=== PATIENT | male | born 1990 | race Caucasian/White ===

== ENCOUNTER 2018-08-29 08:28 | Inpatient (IN) | payer MEDICARE, OTHER ==
--- NOTE | 2018-08-29 09:32 | PDOC ---
History of Present Illness - General Chief Complaint: Pain Stated Complaint: ABD PAIN Time Seen by Provider: 08/29/18 09:04 History Source: Patient Exam Limitations: No Limitations - History of Present Illness Initial Comments: 08/29/18 09:18 28 yo M w/ no known PMHx comes in c/o sudden onset of diffuse waxing and waning abdominal pain this am, after he woke up, while trying to have a bowel movement. NO associated symptoms. Pt denies nausea/vomiting/diarrhea, no burning /pain on urination, no back pain, no blood in urine, no penile discharge, no headache, no chest pain, no SOB, no h/o abdominal surgeries, no known sick contacts, no rash, no recent travel. Pt had a similar pain 3 yrs ago, was told that it was a gastroenteritis. He did not take any meds at home for symptoms Past History - Past Medical History Allergies/Adverse Reactions: Allergies Allergy/AdvReac Type Severity Reaction Status Date / Time No Known Allergies Allergy Verified 08/29/18 09:25 Home Medications: Ambulatory Orders NK [No Known Home Medication] 08/29/18 COPD: No - Suicide/Smoking/Psychosocial Hx Smoking History: Current some day smoker Information on smoking cessation initiated: No Review of Systems - Review of Systems Able to Perform ROS?: Yes Constitutional: Yes: Malaise. No: Chills, Fever, Night Sweats HEENTM: No: Eye Pain, Recent change in vision, Throat Pain Respiratory: No: Cough, Shortness of Breath Cardiac (ROS): No: Chest Pain, Palpitations, Chest Tightness ABD/GI: Yes: Abdominal cramping. No: Diarrhea, Nausea, Vomiting : No: Dysuria, Hematuria Musculoskeletal: No: Back Pain Integumentary: No: Rash Neurological: No: Headache, Numbness, Dizziness Psychiatric: No: Change in Appetite Endocrine: No: Unexplained Weight Loss *Physical Exam - Vital Signs Last Vital Signs Temp Pulse Resp BP Pulse Ox 97.9 F 61 18 120/80 98 08/29/18 08:29 08/29/18 08:29 08/29/18 08:29 08/29/18 08:29 08/29/18 08:29 - Physical Exam General Appearance: Yes: Nourished, Apparent Distress (from pain) HEENT: positive: DENIS, Normal ENT Inspection, Normal Voice. negative: Pale Conjunctivae, Scleral Icterus (R), Scleral Icterus (L) Neck: positive: Supple. negative: Decreased range of motion, Tender midline Respiratory/Chest: positive: Lungs Clear, Normal Breath Sounds. negative: Respiratory Distress, Accessory Muscle Use Cardiovascular: positive: Regular Rhythm, Regular Rate Gastrointestinal/Abdominal: positive: Normal Bowel Sounds, Tender (diffuse tenderness, mostly in the epigastric area, RLQ/LLQ. mild tenderness at McBurney' s point, No rebound, (-)Rosving sign, (-)psoas sign. Questionnable L sided CVA tenderness), Soft Musculoskeletal: positive: Normal Inspection. negative: CVA Tenderness, Decreased Range of Motion Extremity: positive: Normal Capillary Refill, Normal Inspection, Normal Range of Motion. negative: Tender, Pedal Edema Integumentary: positive: Normal Color, Dry. negative: Jaundice, Rash Neurologic: positive: Fully Oriented, Alert, Normal Mood/Affect ED Treatment Course - LABORATORY CBC & Chemistry Diagram: 08/29/18 09:49 08/29/18 09:49 Medical Decision Making - Medical Decision Making 08/29/18 09:34 28 yo M w/ abdominal pain, epigastric and diffuse lower with ? L CVA tenderness. Will line and lab, check urine, will give maalox, pepcid and if not better will do a CT R/O appendicitis vs kidney stone 08/29/18 13:55 Pt still in a lot of pain, he received omrphine 2mg for pain. Abdomen with diffuse tenderness, mostly in epigastric/RUQ and RLQ. WIll do a CT R/O appendicitis or other intraabdominal pathology 08/29/18 15:43 Temp 100.6. Tylenol ordered. Pt at CT 08/29/18 16:44 CT abdomen/pelvis shows several dilated loops of small bowel (in segments) and large bowel (distally). No obstructive lesions seen, no ileus, R/O inflammatory Vs infectious bowel disease. Radiology recommends Gi consult and eval of upper/ lower GI with barium studies. GI, Dr. Harriett fung 08/29/18 16:50 08/29/18 16:56 I spoke to GI who recommends abdominal xray R/O obstruction. Will also give cipro flagyl due to fever and white count. Xray ordered. 08/29/18 16:59 08/29/18 17:[address] Ortiz. Will admit patient. Pt still in a lot of pain, will order morphine 2mg. Hospitalist paged 08/29/18 18:22 2nd dose of morphine was not ordered. Pt declined, saying that his pain is better, seen and evaluated by the hospitalist. 08/29/18 18:50 Change of shift, care of patient signed over to [facility] who will monitor patient. 28 yo M w/ abdominal pain, CT with dilated loops of bowel in segments in small intestine. R/O infectious vs inflammatory bowel disease. Pt received cipro/flagyl, admitted. Hospitalist already saw patient. 08/29/18 18:55 *DC/Admit/Observation/Transfer Diagnosis at time of Disposition: Abdominal pain Qualifiers: Abdominal location: unspecified location Qualified Code(s): R10.9 - Unspecified abdominal pain - Referrals - Patient Instructions - Post Discharge Activity
[2018-08-29] MEDS ORDERED: FAMOTIDINE 20 MG/50 ML IVPB 20 MG/50 ML MG IVPB ONE ×2 (10:01→10:16)
[2018-08-29] MEDS ORDERED: SODIUM CHLORIDE 0.9% 1000 ML INFUS.BAG IV ONE ×2 (10:01→10:49)
[2018-08-29] MEDS ORDERED: MAG HYDROX/AL HYDROX/SIMETH 30 ML UNIT-DOSE CUP PO ONE (10:01)
[2018-08-29] MEDS ORDERED: MAG HYDROX/AL HYDROX/SIMETH 30 ML UNIT-DOSE CUP ONE (10:05)
[2018-08-29 10:06] LABS: BASO % 0.5 % (0-2.0); EOS % 0.3 % (0-4.5); HEMOGLOBIN 13.7 GM/dL (11.7-16.9); LYMPH % 8.1 % (8-40); MCH 31.4 pg (25.7-33.7); MCHC 33.3 g/dl (32.0-35.9); MEAN CELL VOLUME 94.2 fl (80-96); MEAN PLT VOLUME 9.4 fl (7.5-11.1); MONO % 4.7 % (3.8-10.2); NEUT % 86.4 % (42.8-82.8); PLATELET COUNT 204 K/MM3 (134-434); RBC 4.36 M/mm3 (4.00-5.60); RDW 13.6 % (11.9-15.9); WHITE BLOOD COUNT 12.9 K/mm3 (4.0-10.0)
[2018-08-29 10:13] LABS: INR 0.86 (0.83-1.09); PROTHROMBIN TIME (PATIENT) 10.1 SEC (9.7-13.0)
[2018-08-29 10:24] LABS: ALBUMIN 3.8 g/dl (3.4-5.0); BILIRUBIN,TOTAL 0.2 mg/dL (0.2-1); CREATININE 0.8 mg/dL (0.55-1.3); POTASSIUM 4.2 mmol/L (3.5-5.1); TOT PROT 7.4 g/dl (6.4-8.2)
[2018-08-29 10:26] LABS: URINE APPEARANCE CLEAR; URINE BILIRUBIN NEGATIVE (NEGATIVE); URINE COLOR YELLOW; URINE GLUCOSE (UA) NEGATIVE (NEGATIVE); URINE KETONE NEGATIVE (NEGATIVE); URINE LEUK ESTERASE NEGATIVE (NEGATIVE); URINE NITRITE NEGATIVE (NEGATIVE); URINE PROTEIN NEGATIVE (NEGATIVE); URINE UROBILINOGEN 0.2 mg/dL (0.2-1.0)
[2018-08-29] MEDS ORDERED: ONDANSETRON 4 MG/2 ML VIAL IVPUSH ONE (10:49)
[2018-08-29] MEDS ORDERED: morphine CARPU-JECT 2 MG/1 ML DISP.SYRIN IVPUSH ONE (10:49)
[2018-08-29] MEDS ORDERED: MORPHINE SULFATE 2 MG/ML VIAL ONE (10:50)
[2018-08-29] MEDS ORDERED: ONDANSETRON 4 MG/2 ML VIAL ONE (10:50)
[2018-08-29] MEDS ORDERED: ACETAMINOPHEN 500 MG TABLET (FP) PO ONE (15:41)
[2018-08-29] MEDS ORDERED: ACETAMINOPHEN 325 MG TABLET (FP) ONE (16:13)
[2018-08-29] MEDS ORDERED: CIPROFLOXACIN 400 MG/D5W 400 MG/200 ML IVPB IVPB ONE (17:00)
--- NOTE | 2018-08-29 18:06 | HP ---
CHIEF COMPLAINT: abdominal pain PCP: None HISTORY OF PRESENT ILLNESS: 28 yom with PMHx of Colitis 3 years ago, when d/abbi home from ED on po antibiotics, no prior MD or GI follow up, comes with sudden onset of generalized crampy abdominal pain starting this AM prompting him to come to the ED. Patient reports waking up with the pain, had a normal BM, but felt was about to pass out so came to the hospital. Had an episode of loose stool in the ED. Had nachos and chicken sandwich, unsure if contributed to the symptoms. Denies any fevers, chills, nausea, vomiting, bloody or dark stools, recent travel or antibiotics, sick contact or anyone else sick with similar symptoms. No family hx of Inflammatory bowel disease or GI malignancy. Drinks 5-6 beers daily, marihuana every 1-2 days, last use yesterday. 12 point ROS done, reports weakness and dizziness, neg except above. ER course was notable for: (1) CT A/P with dilated small and large bowel loops (2) Abdominal US (3) Famotidine/morphine/Ciprofloxacin/flagyl (4) GI consult, requesting Abdominal xray Recent Travel: denies PAST MEDICAL HISTORY: Colitis 3 years ago, when d/abbi home from ED on po antibiotics, no prior MD or GI follow up, PAST SURGICAL HISTORY: Denies Social History: Smoking: denies Alcohol: 5-6 beers daily Drugs: marihuana every 1-2 days Works in construction, lives with girlfriend. Independent in ADLs Family History: Allergies No Known Allergies Allergy (Verified 08/29/18 09:25) HOME MEDICATIONS: Home Medications Medication Instructions Recorded NK [No Known Home Medication] 08/29/18 REVIEW OF SYSTEMS 12 point ROS done, neg except above. PHYSICAL EXAMINATION Vital Signs - 24 hr 08/29/18 08/29/18 08/29/18 08:29 12:00 14:11 Temperature 97.9 F 99.1 F 100.6 F H Pulse Rate 61 Pulse Rate [ 76 Apical] Respiratory 18 18 Rate Blood Pressure 120/80 Blood Pressure 124/78 [Left Arm] O2 Sat by Pulse 98 100 Oximetry (%) 08/29/18 17:40 Temperature 99.5 F Pulse Rate Pulse Rate [ Apical] Respiratory Rate Blood Pressure Blood Pressure [Left Arm] O2 Sat by Pulse Oximetry (%) GENERAL: Awake, alert, and fully oriented, in no acute distress. HEAD: Normal with no signs of trauma. EYES: Pupils equal, round and reactive to light, extraocular movements intact, sclera anicteric, conjunctiva clear. No lid lag. EARS, NOSE, THROAT: Ears normal, nares patent, oropharynx clear without exudates. Dry skin and mucous membrane NECK: Normal range of motion, supple without lymphadenopathy, JVD, or masses. LUNGS: Breath sounds equal, clear to auscultation bilaterally. No wheezes, and no crackles. No accessory muscle use. HEART: Regular rate and rhythm, normal S1 and S2 without murmur, rub or gallop. ABDOMEN: Soft, ND, mild right edith-umbilical tenderness, pos bowel sounds, no voluntary or involuntary guarding or rigidity, unable to appreciate hepatosplenomegaly MUSCULOSKELETAL: Normal range of motion at all joints. No bony deformities or tenderness. No CVA tenderness. UPPER EXTREMITIES: 2+ pulses, warm, well-perfused. No cyanosis. No clubbing. No peripheral edema. LOWER EXTREMITIES: 2+ pulses, warm, well-perfused. No calf tenderness. No peripheral edema. NEUROLOGICAL: AAOx3, Cranial nerves II-XII grossly intact. Normal speech. Gait not observed PSYCHIATRIC: Cooperative. Good eye contact. Appropriate mood and affect. SKIN: Warm, dry, normal turgor, no rashes or lesions noted, normal capillary refill. Laboratory Results - last 24 hr 08/29/18 08/29/18 08/29/18 09:49 09:49 09:49 WBC 12.9 H RBC 4.36 Hgb 13.7 Hct 41.0 MCV 94.2 MCH 31.4 MCHC 33.3 RDW 13.6 Plt Count 204 MPV 9.4 Absolute Neuts (auto) 11.2 H Neutrophils % 86.4 H Lymphocytes % 8.1 Monocytes % 4.7 Eosinophils % 0.3 Basophils % 0.5 Nucleated RBC % 0 PT with INR INR Sodium 138 Potassium 4.2 Chloride 106 Carbon Dioxide 26 Anion Gap 6 L BUN 12 Creatinine 0.8 Est GFR (CKD-EPI)AfAm 142.89 Est GFR (CKD-EPI)NonAf 123.29 Random Glucose 114 H Calcium 9.0 Total Bilirubin 0.2 AST 19 ALT 46 Alkaline Phosphatase 125 H Total Protein 7.4 Albumin 3.8 Lipase 65 L Urine Color Urine Appearance Urine pH Ur Specific [place] Urine Protein Urine Glucose (UA) Urine Ketones Urine Blood Urine Nitrite Urine Bilirubin Urine Urobilinogen Ur Leukocyte Esterase Blood Type O POSITIVE Antibody Screen Negative 08/29/18 08/29/18 09:49 10:02 WBC RBC Hgb Hct MCV MCH MCHC RDW Plt Count MPV Absolute Neuts (auto) Neutrophils % Lymphocytes % Monocytes % Eosinophils % Basophils % Nucleated RBC % PT with INR 10.10 INR 0.86 Sodium Potassium Chloride Carbon Dioxide Anion Gap BUN Creatinine Est GFR (CKD-EPI)AfAm Est GFR (CKD-EPI)NonAf Random Glucose Calcium Total Bilirubin AST ALT Alkaline Phosphatase Total Protein Albumin Lipase Urine Color Yellow Urine Appearance Clear Urine pH 6.0 Ur Specific [place] 1.024 Urine Protein Negative Urine Glucose (UA) Negative Urine Ketones Negative Urine Blood Negative Urine Nitrite Negative Urine Bilirubin Negative Urine Urobilinogen 0.2 Ur Leukocyte Esterase Negative Blood Type Antibody Screen CT A/P results reviewed Abdominal US results reviewed Abdominal xray images reviewed, await official read ASSESSMENT/PLAN: 28 yom with PMHx of colitis 3 years ago, admitted with abdominal pain -Abdominal pain, Acute viral gastroenteritis, vs infectious/inflammatory colitis , r/o underlying IBD given recurrent symptoms and CT findings -Suspected early sepsis -Dehydration -Alcohol dependence -Cannabis use Plan: PO Clears, IVF, levaquin/flagyl. blood cultures. Stool studies if recurrent diarrhea. GI consult. Additional imaging including CT with PO contrast vs colonoscopy if symptoms fail to improve. Patient counseled on outpatient GI follow up and need for monitoring. Check ESR/CRP. Pain control with tylenol/low dose morphine. PPI IV. Routine EKG to assess QTc (Discussed with ED) DVTPPX low risk, Dispo anticipate home d/c once clinically improved. Plan discussed with patient and girlfriend at bedside in detail, all questions answered Care co-ordinated with ED Total admit time spent 65 min. Visit type - Emergency Visit Emergency Visit: Yes Care time: The patient presented to the Emergency Department on the above date and was hospitalized for further evaluation of their emergent condition. - New Patient This patient is new to me today: Yes Date on this admission: 08/29/18 - Critical Care Critical Care patient: No
[2018-08-29] MEDS ORDERED: MORPHINE SULFATE 2 MG/ML VIAL IVPUSH PRN (18:19)
[2018-08-29] MEDS ORDERED: ACETAMINOPHEN 325 MG TABLET (FP) PO PRN (18:19)
[2018-08-29] MEDS ORDERED: MAG HYDROX/AL HYDROX/SIMETH 30 ML UNIT-DOSE CUP PO PRN (18:26)
[2018-08-29] MEDS ORDERED: SODIUM CHLORIDE 0.9% 500 ML INFUS.BAG IV ONE ×2 (18:27→18:46)
[2018-08-29] MEDS ORDERED: LACTATED RINGERS SOLUTION 1,000 ML IV SCH (18:30)
[2018-08-29 20:56] LABS: COCAINE, UR NEGATIVE ng/ml (CUTOFF=300); METHADONE, UR NEGATIVE ng/ml (CUTOFF=300); PHENCYCLIDINE,URINE NEGATIVE ng/ml (CUTOFF=25); URINE AMPHETAMINES NEGATIVE ng/ml (CUTOFF=500); URINE BARBITURATES NEGATIVE ng/ml (CUTOFF=200); URINE BENZODIAZEPINES NEGATIVE ng/ml (CUTOFF=200)
[2018-08-29 20:59] LABS: OPIATES, URI POSITIVE ng/ml (CUTOFF=300)
[2018-08-29 23:48] VITALS: BMI 26.2
[2018-08-30 07:48] LABS: ALBUMIN 3.3 g/dl (3.4-5.0); BILIRUBIN,TOTAL 0.7 mg/dL (0.2-1); CALCIUM 8.4 mg/dL (8.5-10.1); CREATININE 0.7 mg/dL (0.55-1.3); MAGNESIUM 2.2 mg/dL (1.8-2.4); PHOSPHOROUS 2.6 mg/dL (2.5-4.9); POTASSIUM 3.9 mmol/L (3.5-5.1); TOT PROT 6.4 g/dl (6.4-8.2)
[2018-08-30 08:06] LABS: BASO % 0.1 % (0-2.0); EOS % 0.2 % (0-4.5); HEMATOCRIT 39.6 % (35.4-49); HEMOGLOBIN 13.5 GM/dL (11.7-16.9); LYMPH % 8.8 % (8-40); MCH 31.9 pg (25.7-33.7); MCHC 34.1 g/dl (32.0-35.9); MEAN CELL VOLUME 93.5 fl (80-96); MEAN PLT VOLUME 9.9 fl (7.5-11.1); MONO % 6.7 % (3.8-10.2); NEUT % 84.2 % (42.8-82.8); PLATELET COUNT 190 K/MM3 (134-434); RBC 4.23 M/mm3 (4.00-5.60); RDW 13.6 % (11.9-15.9); WHITE BLOOD COUNT 9.3 K/mm3 (4.0-10.0)
[2018-08-30] MEDS ORDERED: PANTOPRAZOLE SODIUM 40 MG VIAL IVPUSH SCH (10:00)
[2018-08-30 13:18] VITALS: BP 129/65; PULSE 86; TEMP 98.4
--- NOTE | 2018-08-30 14:35 | PN ---
Teaching Attending Note Name of Resident: Dano Rocha ATTENDING PHYSICIAN STATEMENT I saw and evaluated the patient. I reviewed the resident's note and discussed the case with the resident. I agree with the resident's findings and plan as documented with exceptions below. SUBJECTIVE: Patient seen and examined. abdominal cramps resolved. no new nausea, vomiting or diarrhea, no concerns. OBJECTIVE: Vital Signs Period Temp Pulse Resp BP Sys/Leigh Pulse Ox Last 24 Hr 98.4 F-99.5 F 83-104 18-20 124-152/65-72 98-100 Intake & Output 08/27/18 08/28/18 08/29/18 08/30/18 23:59 23:59 23:59 23:59 Intake Total 400 Balance 400 Weight 162 lb 4 oz General: lying in bed in no acute distress Chest: CTAB, no rales or wheezing Abdomen:soft, NT, ND, pos bowel sounds Extremities: no edema Home Medications Medication Instructions Recorded NK [No Known Home Medication] 08/29/18 Active Medications Acetaminophen (Tylenol -) 650 mg PO Q4H PRN PRN Reason: PAIN LEVEL 1-5 Al Hydroxide/Mg Hydroxide (Mylanta Oral Suspension -) 30 ml PO Q6H PRN PRN Reason: DYSPEPSIA Last Admin: 08/29/18 22:40 Dose: 30 ml Metronidazole (Flagyl 500mg Premixed Ivpb -) 500 mg in 100 mls @ 100 mls/hr IVPB Q8H-IV [facility] Last Admin: 08/30/18 11:27 Dose: 100 mls/hr Lactated Ringer's (Lactated Ringers Solution) 1,000 mls @ 125 mls/hr IV ASDIR JACK[facility] Last Admin: 08/29/18 22:40 Dose: 125 mls/hr Levofloxacin (Levaquin 500 Mg Premixed Ivpb -) 500 mg in 100 mls @ 100 mls/hr IVPB DAILY [facility]; Protocol Last Admin: 08/30/18 11:28 Dose: 100 mls/hr Morphine Sulfate (Morphine Sulfate) 0.5 mg IVPUSH Q4H PRN PRN Reason: PAIN LEVEL 6-10 Pantoprazole Sodium (Protonix Iv) 40 mg IVPUSH DAILY [facility] Last Admin: 08/30/18 11:30 Dose: 40 mg Laboratory Results - last 24 hr 08/29/18 08/29/18 08/30/18 10:12 19:20 06:30 WBC 9.3 RBC 4.23 Hgb 13.5 Hct 39.6 MCV 93.5 MCH 31.9 MCHC 34.1 RDW 13.6 Plt Count 190 MPV 9.9 Absolute Neuts (auto) 7.8 Neutrophils % 84.2 H Lymphocytes % 8.8 Monocytes % 6.7 Eosinophils % 0.2 Basophils % 0.1 Nucleated RBC % 0 ESR Sodium Potassium Chloride Carbon Dioxide Anion Gap BUN Creatinine Est GFR (CKD-EPI)AfAm Est GFR (CKD-EPI)NonAf Random Glucose Calcium Phosphorus Magnesium Total Bilirubin AST ALT Alkaline Phosphatase C-Reactive Protein Total Protein Albumin Opiates Screen Positive A* Methadone Screen Negative Barbiturate Screen Negative Phencyclidine Screen Negative Ur Amphetamines Screen Negative MDMA (Ecstasy) Screen Negative Benzodiazepines Screen Negative Cocaine Screen Negative U Marijuana (THC) Screen Positive A* Blood Type O POSITIVE 08/30/18 08/30/18 08/30/18 06:30 06:30 06:30 WBC RBC Hgb Hct MCV MCH MCHC RDW Plt Count MPV Absolute Neuts (auto) Neutrophils % Lymphocytes % Monocytes % Eosinophils % Basophils % Nucleated RBC % ESR 7 Sodium 134 L Potassium 3.9 Chloride 104 Carbon Dioxide 26 Anion Gap 4 L BUN 6 L Creatinine 0.7 Est GFR (CKD-EPI)AfAm 150.95 Est GFR (CKD-EPI)NonAf 130.24 Random Glucose 92 Calcium 8.4 L Phosphorus 2.6 Magnesium 2.2 Total Bilirubin 0.7 AST 14 L ALT 33 Alkaline Phosphatase 79 C-Reactive Protein Cancelled Total Protein 6.4 Albumin 3.3 L Opiates Screen Methadone Screen Barbiturate Screen Phencyclidine Screen Ur Amphetamines Screen MDMA (Ecstasy) Screen Benzodiazepines Screen Cocaine Screen U Marijuana (THC) Screen Blood Type ASSESSMENT AND PLAN: 28 yom with PMHx of colitis 3 years ago, admitted with abdominal pain -Abdominal pain, Acute viral gastroenteritis, vs infectious/inflammatory colitis , r/o underlying IBD given recurrent symptoms and CT findings -Suspected early sepsis -Dehydration -Alcohol dependence -Cannabis use Plan: Symptoms resolved, tolerating diet well. Discussed with Dr. Lorenzana, outpatient follow up for colonoscopy. cipro/flagyl x 5 days. ESR noted. Makes IBD less likely. ETOH/cannabis cessation counseling provided. d/c home today with outpatient PCP/GI follow up. Plan discussed with patient and nursing ,all questions answered.
--- NOTE | 2018-08-30 15:09 | EKG ---
Test Reason : Blood Pressure : / mmHG Vent. Rate : 111 BPM Atrial Rate : 111 BPM P-R Int : 136 ms QRS Dur : 094 ms QT Int : 314 ms P-R-T Axes : 038 042 019 degrees QTc Int : 427 ms SINUS TACHYCARDIA POSSIBLE LEFT ATRIAL ENLARGEMENT BORDERLINE ECG NO PREVIOUS ECGS AVAILABLE Confirmed by ALYCIA SARABIA MD ([id number]) on 08/30/2018 3:09:30 PM Referred By: Confirmed By:ALYCIA SARABIA MD
--- NOTE | 2018-08-30 16:46 | CONS ---
DATE OF CONSULTATION: DATE OF DICTATION: 08/30/2018 GASTROENTEROLOGY CONSULTATION HISTORY OF PRESENT ILLNESS: The patient is a 28-year-old male with a past medical history of infectious colitis 3 years ago who presents to the emergency room with complaints of a sudden onset of periumbilical abdominal pain which started earlier in the morning the day prior to the admission. He states that the night prior, he ate a lot of food, kind of binge ate, and also drank alcohol, a couple of beers. He reports similar episode a couple years ago, at which time he was diagnosed with this questionable colitis based on imaging. He denies any nausea, vomiting, melena, hematochezia, fevers, chills. He has never had an endoscopic evaluation in the past. PAST MEDICAL AND SURGICAL HISTORY: As listed in the HPI. ALLERGIES: No known drug allergies. SOCIAL HISTORY: Smokes marijuana. Drinks 5-6 beers daily. No other drug use. FAMILY HISTORY: Denies GI or gynecological malignancy or a history of inflammatory bowel disease. HOME MEDICATIONS: Denies. REVIEW OF SYSTEMS: As per HPI. PHYSICAL EXAMINATION: VITAL SIGNS: Temperature 98, pulse 86, respiratory rate 12, blood pressure 130/65, pulse oximetry 98% on room air. GENERAL: In no acute distress. HEENT: Anicteric sclerae. CARDIOVASCULAR: S1, S2, regular rate and rhythm. LUNGS: Bilaterally clear to auscultation. ABDOMEN: Soft, nontender. EXTREMITIES: No edema. LABORATORY: White blood cell count 9.3, hemoglobin and hematocrit 13/29, MCV 93, platelet count 190, INR 0.86. Sodium 134, potassium 3.9, BUN/creatinine 6/0.7, total bilirubin 0.7, AST 14, ALT 33, alkaline phosphatase 79, lipase 65. Urine is negative. Toxicology screen is positive for opiates and marijuana. He had an abdominal pelvis CT scan which revealed abnormal small bowel and large bowel as described with some dilation. There is no sign of an ileus or an obstructing lesion. There is questionable inflammation. IMPRESSION: Impression of mid abdominal pain. These findings may be infectious, but this patient may have underlying inflammatory bowel disease. Currently his symptoms have resolved. RECOMMENDATION: lactose free diet. He can be discharged with outpatient GI followup. He will need a diagnostic upper endoscopy and a colonoscopy, which can be done as an outpatient. Followup was recommended to this patient. DO BLAYNE NICOLAS/[id number]
--- NOTE | 2018-08-30 18:21 | DS ---
Physical Exam: SUBJECTIVE: Patient seen and examined at bedside. Feels well, ate regular diet for lunch without issue, no nausea, vomiting, abd pain, fevers, chills. OBJECTIVE: Vital Signs Temperature 98.4 F 08/30/18 13:16 Pulse Rate 86 08/30/18 13:16 Respiratory Rate 20 08/30/18 13:16 Blood Pressure 129/65 08/30/18 13:16 O2 Sat by Pulse Oximetry (%) 98 08/29/18 23:00 PHYSICAL EXAM GENERAL: The patient is awake, alert, and fully oriented, in no acute distress. EYES: extraocular movements intact NECK: Trachea midline, full range of motion, supple. LUNGS: Breath sounds equal, clear to auscultation bilaterally HEART: Regular rate and rhythm, S1, S2 ABDOMEN: Soft, nontender, nondistended, normoactive bowel sounds EXTREMITIES: warm, well-perfused, no edema. NEUROLOGICAL: Cranial nerves II through XII grossly intact. PSYCH: Normal mood, normal affect. SKIN: Warm, dry LABS Laboratory Results - last 24 hr 08/29/18 08/29/18 08/30/18 10:12 19:20 06:30 WBC 9.3 RBC 4.23 Hgb 13.5 Hct 39.6 MCV 93.5 MCH 31.9 MCHC 34.1 RDW 13.6 Plt Count 190 MPV 9.9 Absolute Neuts (auto) 7.8 Neutrophils % 84.2 H Lymphocytes % 8.8 Monocytes % 6.7 Eosinophils % 0.2 Basophils % 0.1 Nucleated RBC % 0 ESR Sodium Potassium Chloride Carbon Dioxide Anion Gap BUN Creatinine Est GFR (CKD-EPI)AfAm Est GFR (CKD-EPI)NonAf Random Glucose Calcium Phosphorus Magnesium Total Bilirubin AST ALT Alkaline Phosphatase C-Reactive Protein Total Protein Albumin Opiates Screen Positive A* Methadone Screen Negative Barbiturate Screen Negative Phencyclidine Screen Negative Ur Amphetamines Screen Negative MDMA (Ecstasy) Screen Negative Benzodiazepines Screen Negative Cocaine Screen Negative U Marijuana (THC) Screen Positive A* Blood Type O POSITIVE 08/30/18 08/30/18 08/30/18 06:30 06:30 06:30 WBC RBC Hgb Hct MCV MCH MCHC RDW Plt Count MPV Absolute Neuts (auto) Neutrophils % Lymphocytes % Monocytes % Eosinophils % Basophils % Nucleated RBC % ESR 7 Sodium 134 L Potassium 3.9 Chloride 104 Carbon Dioxide 26 Anion Gap 4 L BUN 6 L Creatinine 0.7 Est GFR (CKD-EPI)AfAm 150.95 Est GFR (CKD-EPI)NonAf 130.24 Random Glucose 92 Calcium 8.4 L Phosphorus 2.6 Magnesium 2.2 Total Bilirubin 0.7 AST 14 L ALT 33 Alkaline Phosphatase 79 C-Reactive Protein Cancelled Total Protein 6.4 Albumin 3.3 L Opiates Screen Methadone Screen Barbiturate Screen Phencyclidine Screen Ur Amphetamines Screen MDMA (Ecstasy) Screen Benzodiazepines Screen Cocaine Screen U Marijuana (THC) Screen Blood Type HOSPITAL COURSE: Date of Admission:08/29/18 Date of Discharge: 08/30/18 28 y/o M w/PMH of colitis 3 years ago with no medical follow up came to the ER with sudden onset of crampy abd pain with normal BMs admitted for colitis. CT abd/pelvis showed: "Several loops of dilated small bowel and large bowel noted. The dilated large bowel is seen distally. The dilated small bowel is seen in segments especially the terminal and distal ileum as well as the mid jejunum." He was treated with levaquin and flagyl and improved. He was started on a regular diet the next day and was able to tolerate it without issue. Case was discussed with GI and pt would be able to f/u as an outpatient for colonoscopy and pt agreed to following up as an outpatient for colonoscopy and GI follow up. He was discharged with ciprofloxacin for 5 more days and metronidazole for 5 more days. He is to f/u with a PCP within the next week and was referred to [facility] and to Dr. Lorenzana for GI follow up. Minutes to complete discharge: 45 Discharge Summary Reason For Visit: INFECTIOUS COLITIS Condition: Good - Instructions Diet, Activity, Other Instructions: You were admitted to the hospital for infection in your bowels and treated with antibiotics. Please follow the directions below. MEDICATIONS: -You will need to take and complete the course of antibiotics at home. -You have been prescribed ciprofloxacin 500 mg twice a day for 5 days. Start this medication tomorrow (08/31/18) -You have also been prescribed metronidazole (flagyl) 500 mg every 8 hours to take for 5 days. FOLLOW UPS: -Please follow with your primary care doctor within 1 week. If you do not have one we have referred you to our primary care clinic with whom you may follow. -Please follow with a GI doctor (Dr. Danielle referred) for a colonoscopy that will need to be done to rule out an underlying GI disease such as inflammatory bowel disease. INSTRUCTIONS: -It is extremely important that you stop both marijuana use and alcohol use. The alcohol use can lead to things such as liver disease, anemia, and even . -You will need a colonoscopy and you will need to follow up with a GI doctor as described above. -If you develop worsening of your presenting symptoms, fevers, chills, chest pain, worsening of your abdominal pain please come back to the ER. Referrals: Vitaly Zaidi MD [Staff Physician] - Mayi Lorenzana DO [Staff Physician] - Disposition: HOME - Home Medications Comprehensive Discharge Medication List: Ambulatory Orders Acetaminophen [Tylenol .Regular Strength -] 650 mg PO Q4H PRN tablet 08/30/18 Ciprofloxacin [Cipro -] 500 mg PO Q12H #10 tablet 08/30/18 Metronidazole 500 mg PO Q8H #15 tablet 08/30/18 This patient is new to me today: Yes Date on this admission: 08/30/18 Emergency Visit: Yes ED Registration Date: 08/29/18 Care time: The patient presented to the Emergency Department on the above date and was hospitalized for further evaluation of their emergent condition. Critical Care patient: No - Discharge Referral Referred to [facility] Med [facility] No
== END 2018-08-30 16:17 | disposition home or self-care (01) | DRG 720 ==
LOC: JER 08:28 → JERBED 18:06 → J7W 22:14
PROVIDERS: ADMIT Hospitalist; ATTEND Hospitalist
DX: A41.89 Other specified sepsis (principal); A09 Infectious gastroenteritis and colitis, unspecified; A08.4 Viral intestinal infection, unspecified; E86.0 Dehydration; F10.20 Alcohol dependence, uncomplicated; F12.90 Cannabis use, unspecified, uncomplicated
CPT/HCPCS: 36415; 74019-TC-FY; 74177-TC; 76705-TC; 80053; 80307; 81003; 83690; 83735; 84100; 85025; 85610; 85651; 86850; 86900; 86901; 87040; 87086; 93005; 93010; 99284-25; J7030